=== PATIENT | male | born 1990 | race Caucasian/White ===

== ENCOUNTER 2016-11-24 16:40 | Emergency (ER) | payer OTHER ==
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
[2016-11-24 17:46] LABS: Hematocrit 44 % (42-52); Hemoglobin 14.7 g/dl (14.0-18.0); Mean Corpuscular HGB Conc 34 g/dl (31-36); Mean Corpuscular Hemoglobin 28 pg (27-31); Mean Corpuscular Volume 84 fL (80-94); Mean Platelet Volume 9 um3 (7.4-10.4); Red Cell Distribution Width 14 % (10.5-15); White Blood Count 6.7 10^3/ul (3.5-10.8)
[2016-11-24 18:06] LABS: Albumin 4.2 g/dL (3.2-5.2); BUN/Creatinine Ratio 18.9 (8-20); Calcium 9.6 mg/dL (8.6-10.3); EGFR African American 129.2 (>60); EGFR Non-African American 100.5 (>60); Globulin 3.2 g/dL (2-4); Potassium 3.8 mmol/L (3.5-5.0); Total Bilirubin 0.4 mg/dL (0.2-1.0); Total Protein 7.4 g/dL (6.4-8.9)
[2016-11-24 18:16] LABS: Urine Bacteria Absent (Absent); Urine Bilirubin Negative (Negative); Urine Glucose Negative (Negative); Urine Nitrite Negative (Negative)
[2016-11-24] MEDS ORDERED: Ketorolac INJ* 30 MG/ML 1 ML VIAL IV PUSH ONE (18:22)
[2016-11-24] MEDS ORDERED: Ondansetron INJ* 2 MG/ML VIAL IV ONE (18:22)
[2016-11-24] MEDS ORDERED: Ketorolac INJ* 30 MG/ML 1 ML VIAL IM ONE (18:50)
[2016-11-24] MEDS ORDERED: Iohexol 300* (CONTRAST) 10 ML SDV IV ONE (20:30)
--- NOTE | 2016-11-24 21:05 | RAD ---
INDICATION: Abdominal pain COMPARISON: None TECHNIQUE: Axial source images were obtained from the hemidiaphragms to the symphysis pubis following administration of oral and intravenous contrast. 150 mL Omnipaque 300 was utilized. Coronal and sagittal reconstructed images were acquired. Lung bases: The lung bases are clear. Liver: There is mild hepatomegaly with hepatic steatosis There are no masses. There is no ductal dilatation. Gallbladder: There are no calcified gallstones. There is no evidence of wall thickening or pericholecystic fluid. Spleen: The spleen is normal in size. There are no masses. Pancreas: There is no focal pancreatic mass or ductal dilatation. Adrenal glands: There is no evidence of adrenal mass. Kidneys: The kidneys are normal in size and position. There are prompt nephrograms and there is prompt excretion bilaterally. There are no renal parenchymal masses. There is no evidence of nephrolithiasis. Adenopathy: There is no evidence of adenopathy by size criteria. Fluid collections: There are no free or localized fluid collections. Vessels:There are no significant atherosclerotic changes involving the aorta. There is no focal aneurysm. The iliac vessels are normal in caliber. The IVC appears normal. GI tract: There are no acute CT bowel findings. There is no obstruction. The stomach and small bowel appear normal. The lower GI tract is normal. The cecum, ileocecal valve, and terminal ileum appear normal. The appendix is visualized and appear normal. Pelvic organs: The prostate and seminal vesicles appear normal Bladder: There are no bladder masses. Abdominal and pelvic soft tissues: The extraperitoneal abdominal and pelvic soft tissues appear normal.. Osseous structures: There is degenerative endplate changes with spurring about the thoracolumbar junction and lower thoracic spine with mild focal kyphosis. Other: None IMPRESSION: NO ACUTE CT FINDINGS. NO MASS OR INFLAMMATORY CHANGE
[2016-11-24 21:46] VITALS: BP 135/92
== END 2016-11-24 21:44 | disposition home or self-care (01) ==
LOC: ED 16:40
DX: R10.30 Lower abdominal pain, unspecified (principal); F17.210 Nicotine dependence, cigarettes, uncomplicated
CPT/HCPCS: 36415; 74177; 80053; 81003; 81015; 83690; 85027; 96372; 96374; 99283; J1885; Q9967

== ENCOUNTER 2017-06-01 09:07 | Emergency (ER) | payer OTHER ==
[2017-06-01 09:15] VITALS: BP 148/81
--- NOTE | 2017-06-01 09:31 | UC ---
Throat Pain/Nasal Guille HPI - HPI Summary HPI Summary: 26 yo gentleman c/o last few days sore throat, head and sinus congestion. No rash. + N/V yesterday. + mild cough, ? prod. Pt works in a public setting. - History of Current Complaint Chief Complaint: UCGeneralIllness Stated Complaint: SORE THROAT Hx Obtained From: Patient - Allergies/Home Medications Allergies/Adverse Reactions: Allergies Allergy/AdvReac Type Severity Reaction Status Date / Time Penicillins Allergy Rash Verified 06/01/17 09:11 Home Medications: Home Medications Aspirin EC TAB* [Ecotrin EC TAB*] 2 tab PO 06/01/17 [History] PMH/Surg Hx/FS Hx/Imm Hx Previously Healthy: Yes - high blood pressure, sleep apnea Cardiovascular History: Hypertension Respiratory History: Other Other Respiratory History: see above - Surgical History Surgical History: None - Social History Alcohol Use: Occasionally Substance Use Type: None Smoking Status (MU): Heavy Every Day Tobacco Smoker Type: Cigarettes Amount Used/How Often: 1 pack/4days Review of Systems Constitutional: Negative Skin: Negative Eyes: Negative ENT: Sore Throat, Nasal Discharge, Sinus Congestion Respiratory: Cough Cardiovascular: Negative Gastrointestinal: Vomiting - yesterday Genitourinary: Negative Motor: Negative Neurovascular: Negative Musculoskeletal: Negative Neurological: Negative Psychological: Negative All Other Systems Reviewed And Are Negative: Yes Physical Exam Triage Information Reviewed: Yes Appearance: Well-Nourished Vital Signs: Initial Vital Signs Temp 98.0 F 06/01/17 09:12 Pulse 83 06/01/17 09:12 Resp 18 06/01/17 09:12 BP 148/81 06/01/17 09:12 Pulse Ox 98 06/01/17 09:12 Vital Signs Reviewed: Yes Eye Exam: Normal ENT: Positive: TM dull Neck exam: Normal Neck: Positive: Supple - no meningismus, Nontender, No Lymphadenopathy Respiratory Exam: Normal Respiratory: Positive: Chest non-tender, Lungs clear, Normal breath sounds, No respiratory distress, No accessory muscle use Cardiovascular Exam: Normal Cardiovascular: Positive: RRR, No Murmur, Pulses Normal, Brisk Capillary Refill Abdominal Exam: Normal Abdomen Description: Positive: Nontender, No Organomegaly, Soft Musculoskeletal Exam: Normal - grossly normal Neurological Exam: Normal Psychological Exam: Normal - conversing easily and appropriately Skin Exam: Normal - no visible or reported rash Throat Pain/Nasal Course/Dx - Course Course Of Treatment: RST noted. D/w pt. Will order monotesting. + sx /sx sinusitis as well. Reviewed coa, f/u pcp. Questions answered as posed. - Differential Dx/Diagnosis Provider Diagnoses: acute pharyngitis,. sinusitis Discharge - Discharge Plan Condition: Stable Disposition: HOME Prescriptions: Azithromyxin GEORGE (NF) [Z-George (Zithromax) 250 mg tabs #6] 2 tab PO .TODAY, THEN 1 DAILY #6 tab Ondansetron ODT TAB* [Zofran 4 MG Odt TAB*] 4 mg PO Q6H PRN #8 tab.odt PRN Reason: Nausea Patient Education Materials: How to Stop Smoking (ED), Pharyngitis (ED) Forms: *Work Release Referrals: Julienne Mahoney MD [Primary Care Provider] - Additional Instructions: Please follow up with your primary care provider in 1-2 weeks. Seek medical attention for worse or new problems in the meantime. Test for mononucleosis ordered today. Drink plenty of water.
[2017-06-01 10:00] LABS: EBV Response YES
[2017-06-01 14:19] LABS: Mono Internal Control QC Line Present
[2017-06-01 14:20] LABS: Manual Entry Verification JEA0012
--- NOTE | 2017-06-02 22:04 | UC ---
Progress - Progress Note Progress Note: Monospot is positive---may stop antibiotics, no spots or work activities that may cause abd injury or trauma for 4 weeks follow in 1 week with pcp
== END 2017-06-01 09:48 | disposition home or self-care (01) ==
LOC: UCEAST 09:07
DX: B27.90 Infectious mononucleosis, unspecified without complication (principal); J32.9 Chronic sinusitis, unspecified; Z88.0 Allergy status to penicillin
CPT/HCPCS: 36415; 86308; 87651; 99212; G0463

== ENCOUNTER 2020-07-31 16:44 | Inpatient (IN) ==
[2020-07-31] MEDS ORDERED: Ondansetron 4 mg VIAL 2 MG/ML 2 ml VIAL IV PRN (17:27)
[2020-07-31] MEDS ORDERED: Albuterol 2.5mg/3 ml (0.083%) NEB.SOLN INH PRN (17:49)
[2020-07-31] MEDS: Nicotine PATCH 21 MG/24 HR PATCH TRANSDERM SCH (19:55)
[2020-07-31 20:20] LABS: Troponin I 0.21 ng/mL (<0.03)
[2020-07-31 23:10] LABS: Troponin I 0.18 ng/mL (<0.03)
[2020-08-01 03:02] LABS: Troponin I 0.18 ng/mL (<0.03)
[2020-08-01] MEDS ORDERED: Perflutren Lipid Microsphere 3 ML VIAL ONE (07:54)
[2020-08-01] MEDS ORDERED: Furosemide 40 mg/4 ml IV VIAL IV SLOW PU SCH (08:00)
[2020-08-01 08:26] LABS: Anion Gap 10 mmol/L (2-11); BUN/Creatinine Ratio 26.9 (8-20); Blood Urea Nitrogen 21 mg/dL (6-24); CO2 Carbon Dioxide 22 mmol/L (22-32); Calcium 8.9 mg/dL (8.6-10.3); Chloride 106 mmol/L (101-111); Cholesterol 241 mg/dL; EGFR African American 140.5 (>60); EGFR Non-African American 116.1 (>60); Glucose 155 mg/dL (70-100); LDL Cholesterol 157 mg/dL; Magnesium 1.8 mg/dL (1.9-2.7); Potassium 4.7 mmol/L (3.5-5.0); Sodium 138 mmol/L (135-145); Triglycerides 107 mg/dL
[2020-08-01] MEDS: Nicotine PATCH 21 MG/24 HR PATCH TRANSDERM SCH (08:52)
[2020-08-01] MEDS ORDERED: Heparin DRIP 25,000 UNITS BAG 25,000 UNITS/500 ML BAG IV SCH (09:30)
[2020-08-01] MEDS ORDERED: Heparin DRIP 25,000 UNITS BAG 25,000 UNITS/500 ML BAG ONE (09:48)
[2020-08-01] MEDS ORDERED: Heparin 5000 UNITS/ML 1 mL VIAL ONE (09:56)
[2020-08-01] MEDS ORDERED: Heparin 5000 UNITS/ML 1 mL VIAL IV SCH (10:00)
[2020-08-01 10:04] LABS: ABS Basophils 0.1 10^3/ul (0-0.2); ABS Lymphocytes 2.2 10^3/ul (1.0-4.8); ABS Monocytes 0.9 10^3/ul (0-0.8); ABS Neutrophils 15.5 10^3/ul (1.5-7.7); Eosinophil % 0.1 %; Hematocrit 43 % (42-52); Hemoglobin 14.8 g/dL (14.0-18.0); Lymphocyte % 11.7 %; Mean Corpuscular HGB Conc 34 g/dL (31-36); Mean Corpuscular Hemoglobin 29 pg (27-31); Mean Corpuscular Volume 86 fL (80-94); Mean Platelet Volume 8.1 fL (7.4-10.4); Platelet Count 287 10^3/uL (150-450); Red Blood Count 5.03 10^6 /uL (4.18-5.48); Red Cell Distribution Width 15 % (10-15); White Blood Count 18.6 10^3/uL (3.5-10.8)
[2020-08-01 10:16] LABS: EGFR African American 136.4 (>60); EGFR Non-African American 112.8 (>60)
[2020-08-01 12:00] VITALS: BP 120/75
== END 2020-08-01 12:00 | disposition left against medical advice (07) | DRG 194 ==
LOC: ED 16:44 → MEDTELE 17:27
PROVIDERS: ADMIT Internal Medicine; ATTEND Internal Medicine

== ENCOUNTER 2022-01-21 18:24 | Inpatient (IN) ==
[2022-01-21 18:53] LABS: ABS Basophils 0.1 10^3/ul (0-0.2); ABS Eosinophils 0.3 10^3/ul (0-0.6); ABS Lymphocytes 2.3 10^3/ul (1.0-4.8); ABS Monocytes 0.8 10^3/ul (0-0.8); ABS Neutrophils 7.7 10^3/ul (1.5-7.7); Eosinophil % 2.5 %; Hematocrit 40 % (42-52); Hemoglobin 13.2 g/dL (14.0-18.0); Lymphocyte % 20.9 %; Mean Corpuscular HGB Conc 33 g/dL (31-36); Mean Corpuscular Hemoglobin 29 pg (27-31); Mean Corpuscular Volume 86 fL (80-94); Mean Platelet Volume 8.1 fL (7.4-10.4); Platelet Count 311 10^3/uL (150-450); Red Blood Count 4.59 10^6 /uL (4.18-5.48); Red Cell Distribution Width 15 % (10-15); White Blood Count 11.2 10^3/uL (3.5-10.8)
[2022-01-21 19:01] LABS: INR 1.2 (0.86-1.15)
[2022-01-21 19:25] LABS: Albumin 3.5 g/dL (3.2-5.2); Albumin/Globulin Ratio 1.5 (1-3); Calcium 8.8 mg/dL (8.6-10.3); Globulin 2.4 g/dL (2-4); Potassium 4.7 mmol/L (3.5-5.0); Total Bilirubin 0.4 mg/dL (0.2-1.0); Total Protein 5.9 g/dL (6.4-8.9); eGFR CKD-EPI 116.8 (>60)
[2022-01-21 20:56] LABS: High Sensitivity Troponin 1 Hr 1800 pg/mL (<20)
[2022-01-21] MEDS ORDERED: Furosemide 20 mg/2 ml IV VIAL IV SLOW PU ONE (21:02)
[2022-01-21] MEDS ORDERED: Iodixanol (CONTRAST) 320 MG/ML 100 ML SDV IV ONE (21:36)
[2022-01-21 21:40] LABS: PCO2 Arterial 39 mmHg (35-45); PO2 Arterial 78 mmHg (80-100)
[2022-01-22] MEDS ORDERED: Ondansetron 4 mg VIAL 2 MG/ML 2 ml VIAL IV PRN (00:42)
[2022-01-22] MEDS ORDERED: Furosemide 20 mg/2 ml IV VIAL IV ONE (09:00)
[2022-01-22 11:40] VITALS: BP 151/82
[2022-01-22 11:44] LABS: Calcium 9.1 mg/dL (8.6-10.3); Potassium 4.4 mmol/L (3.5-5.0); eGFR CKD-EPI 101.9 (>60)
[2022-01-22] MEDS ORDERED: Perflutren Lipid Microsphere 3 ML VIAL ONE (13:22)
== END 2022-01-22 16:29 | disposition left against medical advice (07) | DRG 194 ==
LOC: ED 18:24 → EDHOLD 01-22 00:42 → MEDTELE 01-22 10:10
PROVIDERS: ADMIT Hospitalist; ATTEND Hospitalist

== ENCOUNTER 2022-01-23 06:51 | Inpatient (IN) ==
[2022-01-23] MEDS ORDERED: Furosemide 40 mg/4 ml IV VIAL IV ONE (07:58)
[2022-01-23 08:21] LABS: ABS Basophils 0.1 10^3/ul (0-0.2); ABS Eosinophils 0.1 10^3/ul (0-0.6); ABS Lymphocytes 1.4 10^3/ul (1.0-4.8); ABS Monocytes 1.2 10^3/ul (0-0.8); ABS Neutrophils 17.1 10^3/ul (1.5-7.7); Eosinophil % 0.4 %; Hematocrit 45 % (42-52); Hemoglobin 15.3 g/dL (14.0-18.0); Lymphocyte % 7.1 %; Mean Corpuscular HGB Conc 34 g/dL (31-36); Mean Corpuscular Hemoglobin 29 pg (27-31); Mean Corpuscular Volume 85 fL (80-94); Mean Platelet Volume 8.3 fL (7.4-10.4); Platelet Count 334 10^3/uL (150-450); Red Blood Count 5.35 10^6 /uL (4.18-5.48); Red Cell Distribution Width 15 % (10-15); White Blood Count 19.9 10^3/uL (3.5-10.8)
[2022-01-23 09:12] LABS: Albumin 3.3 g/dL (3.2-5.2); Albumin/Globulin Ratio 1.3 (1-3); Calcium 8.9 mg/dL (8.6-10.3); Globulin 2.5 g/dL (2-4); Potassium 4.3 mmol/L (3.5-5.0); Total Bilirubin 0.9 mg/dL (0.2-1.0); Total Protein 5.8 g/dL (6.4-8.9)
[2022-01-23] MEDS ORDERED: Ondansetron 4 mg VIAL 2 MG/ML 2 ml VIAL IV PRN (09:45)
[2022-01-23] MEDS ORDERED: Nicotine GUM 4MG FRUIT FLAVOR PO PRN (09:52)
[2022-01-23] MEDS ORDERED: Warfarin per PHARMACY **NOTE FOLLOW UP SCH (10:00)
[2022-01-23 10:25] LABS: Magnesium 1.8 mg/dL (1.9-2.7)
[2022-01-23 10:39] LABS: INR 1.37 (0.86-1.15)
[2022-01-23] MEDS: Nicotine PATCH 21 MG/24 HR PATCH TRANSDERM SCH (11:00)
[2022-01-23] MEDS ORDERED: Magnesium Sulfate IV 1GM/100ML 1 GM/100 ML BAG IV ONE (11:27)
[2022-01-23] MEDS: Warfarin DAILY REMINDER **NOTE FOLLOW UP SCH (16:33)
[2022-01-23] MEDS ORDERED: Metoprolol Succinate XL 200 mg TAB PO SCH (21:00)
[2022-01-24 06:50] LABS: INR 1.48 (0.86-1.15)
[2022-01-24 06:58] LABS: ABS Basophils 0.1 10^3/ul (0-0.2); ABS Eosinophils 0.2 10^3/ul (0-0.6); ABS Lymphocytes 2.2 10^3/ul (1.0-4.8); ABS Monocytes 1.4 10^3/ul (0-0.8); ABS Neutrophils 12.8 10^3/ul (1.5-7.7); Eosinophil % 0.9 %; Hematocrit 44 % (42-52); Hemoglobin 14.6 g/dL (14.0-18.0); Lymphocyte % 13.1 %; Mean Corpuscular HGB Conc 34 g/dL (31-36); Mean Corpuscular Hemoglobin 29 pg (27-31); Mean Corpuscular Volume 85 fL (80-94); Mean Platelet Volume 8.5 fL (7.4-10.4); Platelet Count 318 10^3/uL (150-450); Red Blood Count 5.12 10^6 /uL (4.18-5.48); Red Cell Distribution Width 15 % (10-15); White Blood Count 16.6 10^3/uL (3.5-10.8)
[2022-01-24 07:09] LABS: Calcium 8.5 mg/dL (8.6-10.3); Magnesium 1.9 mg/dL (1.9-2.7); Phosphorus 3.4 mg/dL (2.5-5.0); Potassium 4.2 mmol/L (3.5-5.0); eGFR CKD-EPI 111.2 (>60)
[2022-01-24] MEDS: Nicotine PATCH 21 MG/24 HR PATCH TRANSDERM SCH (08:36)
[2022-01-24 16:37] VITALS: BP 103/69
[2022-01-24] MEDS: Warfarin DAILY REMINDER **NOTE FOLLOW UP SCH (19:16)
== END 2022-01-24 19:10 | disposition home or self-care (01) | DRG 194 ==
LOC: ED 06:51 → EDHOLD 09:45 → MEDTELE 15:50
PROVIDERS: ADMIT Hospitalist; ATTEND Hospitalist

== ENCOUNTER 2022-04-14 17:34 | Inpatient (IN) ==
[2022-04-14] MEDS ORDERED: Morphine 4 MG/ML VIAL (1 ml) IV ONE (18:19)
[2022-04-14 19:04] LABS: Hematocrit 51 % (42-52); Hemoglobin 16.5 g/dL (14.0-18.0); Mean Corpuscular HGB Conc 32 g/dL (31-36); Mean Corpuscular Hemoglobin 27 pg (27-31); Mean Corpuscular Volume 85 fL (80-94); Mean Platelet Volume 8.5 fL (7.4-10.4); Platelet Count 237 10^3/uL (150-450); Red Blood Count 6.03 10^6 /uL (4.18-5.48); Red Cell Distribution Width 16 % (10-15); White Blood Count 30.6 10^3/uL (3.5-10.8)
[2022-04-14] MEDS ORDERED: Cefepime 1 GM in Dextrose 1 GM/50 ML BAG IV ONE (19:04)
[2022-04-14 19:28] LABS: Activated Partial Thrombo Time 35.1 seconds (26.0-38.0); INR 1.6 (0.86-1.15)
[2022-04-14] MEDS ORDERED: Lactated Ringers 1000 ml BAG 1,000 ML IV ONE ×2 (19:31→23:19)
[2022-04-14 19:44] LABS: Albumin 4.3 g/dL (3.2-5.2); Albumin/Globulin Ratio 1.4 (1-3); C Reactive Protein 58.1 mg/L (<8.01); Calcium 9.8 mg/dL (8.6-10.3); Magnesium 2.2 mg/dL (1.9-2.7); Total Bilirubin 1.6 mg/dL (0.2-1.0); Total Protein 7.3 g/dL (6.4-8.9); eGFR CKD-EPI 33.9 (>60)
[2022-04-14 19:46] LABS: Potassium 5.3 mmol/L (3.5-5.0)
[2022-04-14 20:00] LABS: ABS Basophils 0.1 10^3/ul (0-0.2); ABS Lymphocytes 1.5 10^3/ul (1.0-4.8); ABS Monocytes 1.6 10^3/ul (0-0.8); ABS Neutrophils 27.4 10^3/ul (1.5-7.7); Lymphocyte % 4.8 %
[2022-04-14] MEDS ORDERED: Vancomycin 2,000 MG in NS 0.9% 250 ml 250 ML IVPB SCH (20:00)
[2022-04-14] MEDS ORDERED: Vancomycin 2,000 MG in NS 0.9% 500 ml BAG 500 ML IVPB ONE (20:00)
[2022-04-14] MEDS ORDERED: fentaNYL 100 mcg/2 ml 50 MCG/ML VIAL IV SLOW PU PRN ×2 (20:16→23:20)
[2022-04-14 20:58] LABS: High Sensitivity Troponin 1 Hr 5949 pg/mL (<20)
[2022-04-14] MEDS ORDERED: Norepinephrine 16MCG/ML BAGD5W 4,000 MCG/250 ML BAG IV SCH (22:00)
[2022-04-14] MEDS ORDERED: Ondansetron 4 mg VIAL 2 MG/ML 2 ml VIAL ONE (22:04)
[2022-04-14] MEDS ORDERED: Heparin DRIP 25,000 UNITS BAG 25,000 UNITS/500 ML BAG IV SCH (23:00)
[2022-04-14] MEDS ORDERED: Heparin 5000 UNITS/ML 1 mL VIAL IV SCH (23:00)
[2022-04-14] MEDS ORDERED: Azithromycin 500 mg/250 ml NS 500 MG/250 ML BAG IVPB SCH (23:00)
[2022-04-14 23:09] LABS: Phosphorus 5.9 mg/dL (2.5-5.0)
[2022-04-14] MEDS ORDERED: CALCIUM GLUCONATE 1GM/50ML NS 1 GM/50 ML BAG IV ONE (23:18)
[2022-04-14] MEDS ORDERED: fentaNYL 100 mcg/2 ml 50 MCG/ML VIAL ONE (23:26)
[2022-04-14 23:27] LABS: Urine Appearance Cloudy; Urine Color Amber; Urine Specific Gravity 1.024 (1.002-1.030)
[2022-04-14 23:28] LABS: Urine Blood 3+ (Large) (Negative); Urine Ketones Negative (Negative); Urine Protein 3+ (>=300 mg/dL) (Negative); Urine Urobilinogen 0.2 (Negative) (Negative); Urine pH 5.5 (5.0-9.0)
[2022-04-14 23:29] LABS: Urine Bilirubin Negative (Negative); Urine Glucose Negative (Negative); Urine Nitrite Negative (Negative)
[2022-04-14 23:49] LABS: Urine Bacteria Absent (Absent); Urine Granular Casts Present (Absent); Urine Red Blood Cell 3+(>10/hpf) (Absent); Urine Sperm Present (Absent); Urine White Blood Cell 3+(>20/hpf) (Absent)
[2022-04-15] MEDS ORDERED: fentaNYL 100 mcg/2 ml 50 MCG/ML VIAL IV SLOW PU PRN (01:33)
[2022-04-15] MEDS ORDERED: Naloxone 0.4 mg VIAL 0.4 mg/ml 1 ml VIAL ONE ×2 (01:59→02:06)
[2022-04-15] MEDS ORDERED: Sodium Bicarbonate 8.4% SYR 50 ml SYRINGE ONE (02:06)
[2022-04-15] MEDS ORDERED: CALCIUM GLUCONATE ONE (02:06)
[2022-04-15] MEDS ORDERED: EPINEPHrine SYR 0.1MG/ML 10 ml SYRINGE ONE (02:06)
[2022-04-15] MEDS ORDERED: Lactated Ringers 1000 ml BAG 1,000 ML IV ONE (02:20)
[2022-04-15 02:34] LABS: PCO2 Arterial 40 mmHg (35-45); PO2 Arterial 101 mmHg (80-100)
[2022-04-15] MEDS ORDERED: Propofol 10 mg/ml 100 ML BTL 100 ML ONE (02:36)
[2022-04-15] MEDS ORDERED: Norepinephrine 16MCG/ML BAG NS 4,000 MCG/250 ML BAG IV SCH (03:00)
[2022-04-15] MEDS ORDERED: Sodium Bicarbonate 8.4% SYR 50 ml SYRINGE IV ONE (03:17)
[2022-04-15 03:21] LABS: Potassium 7.1 mmol/L (3.5-5.0)
[2022-04-15] MEDS ORDERED: Dextrose 50% Syringe 50 ml 25 GM/50 ML SYRINGE IV PUSH ONE (03:23)
[2022-04-15] MEDS ORDERED: Propofol 10 mg/ml 100 ML BTL 100 ML IV SCH (04:00)
[2022-04-15 05:47] VITALS: BP 169/117
== END 2022-04-15 04:10 | disposition short-term general hospital (02) | DRG 720 ==
LOC: ED 17:34 → EDHOLD 22:43 → ICU 23:23
PROVIDERS: ADMIT Internal Medicine; ATTEND Internal Medicine